=== PATIENT | female | born 1960 | race Caucasian/White ===

== ENCOUNTER 2016-11-12 20:44 | Emergency (ER) | payer OTHER ==
[2016-11-12] MEDS ORDERED: KETOROLAC TROMETHAMINE 60 MG/2 ML VIAL ONE (22:34)
[2016-11-12] MEDS ORDERED: ONDANSETRON 4 MG ODT TAB ONE (22:35)
== END 2016-11-12 22:50 | disposition home or self-care (01) ==
LOC: ED 20:44
DX: B34.9 Viral infection, unspecified (principal); E78.5 Hyperlipidemia, unspecified; F41.9 Anxiety disorder, unspecified; F32.9 Major depressive disorder, single episode, unspecified; F43.10 Post-traumatic stress disorder, unspecified; Z88.5 Allergy status to narcotic agent
CPT/HCPCS: 87804; 99283 ×2; 96372; J1885; A9270